=== PATIENT | male | born 2005 | race Caucasian/White ===

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

== ENCOUNTER 2025-07-13 08:34 | Emergency (ER) | payer MEDICAID, OTHER ==
[~2025-07-13] VITALS: Ht 175.3 cm; Wt 114.0 kg
[2025-07-13 08:47] VITALS: BP 140/77; PULSE 50; RESP 18; TEMP 98.2; O2SAT 100
[2025-07-13] MEDS ORDERED: SULF-261 PO (08:56)
[2025-07-13] MEDS ORDERED: CEPH-558 PO (08:56)
[2025-07-13] MEDS: CEPHALEXIN MONOHYDRATE 500 MG CAPSULE PO ONE (09:12)
[2025-07-13] MEDS: ACETAMINOPHEN 500 MG TABLET PO ONE (09:12)
[2025-07-13] MEDS: BACITRACIN 0.9 GM PACKET OINTMENT TP ONE (09:13)
[2025-07-13] MEDS: SULFAMETHOX/TRIMETH DS 800-160 MG/TABLET PO ONE (09:13)
== END 2025-07-13 09:31 | disposition home or self-care (01) ==
LOC: EMS 08:42
DX: L03.012 Cellulitis of left finger (principal)
CPT/HCPCS: 10060; 99284; Z7502; Z7610